=== PATIENT | female | born 1950 | race Caucasian/White ===

== ENCOUNTER 2018-03-06 08:49 | Outpatient (CLI) | payer MEDICARE ==
--- NOTE | 2018-03-06 11:54 | CT ---
CT ABDOMEN AND PELVIS WITH IV AND ORAL CONTRAST: Date: 03/06/18 HISTORY: Left lower quadrant pain. FINDINGS: Lung bases are clear. The liver, spleen, kidneys, adrenal glands, and pancreas have a normal CT appea jacob. Calcification within the arterial structures. Left inferior vena cava below the level of the r enal veins. Scattered diverticula of the sigmoid colon without adjacent inflammation. Urinary bladder is decompressed. IMPRESSION: 1. Mild diverticulosis. No evidence of diverticulitis. 2. Atherosclerosis. POS: MARIN
== END 2018-03-06 08:50 | disposition home or self-care (01) ==
LOC: NAV CT 08:49
PROVIDERS: ATTEND Family Medicine
DX: R19.04 Left lower quadrant abdominal swelling, mass and lump (principal); I70.0 Atherosclerosis of aorta; K57.30 Diverticulosis of large intestine without perforation or abscess without bleeding
CPT/HCPCS: 74177

== ENCOUNTER 2020-01-11 11:01 | Emergency (ER) | payer MEDICARE ==
[2020-01-11] MEDS ORDERED: Sodium Chloride 0.9% 1,000 ML ONE (11:31)
[2020-01-11 11:45] LABS: #Basophils 0.1 thou/uL (0.0-0.2); #Lymphocytes 1.6 thou/uL (1.20-3.40); #Monocytes 0.6 thou/uL (0.11-0.59); #Neutrophils 4.3 thou/uL (1.40-6.50); %Basophils 0.9 % (0.0-1.0); %Eosinophils 0.3 % (0.0-10.0); %Monocytes 8.5 % (0.0-10.0); %Neutrophils 66.3 % (42.0-75.0); Hemoglobin 13.6 g/dL (12.0-16.0); Mean Corpuscular Hemoglobin 32.4 pg (27.0-31.0); Mean Corpuscular Volume 95.4 fL (78.0-98.0); Mean Platelet Volume 7.4 fL (7.4-10.4); Platelet Count 152 thou/uL (130-400); RBC Distribution Width 11.4 % (11.5-14.5); White Blood Cell (WBC) Count 6.5 thou/uL (4.8-10.8)
--- NOTE | 2020-01-11 11:54 | RAD ---
XR Chest Pa Lat STANDARD HISTORY: Shortness of breath COMPARISON: 09/24/2018 FINDINGS: The heart size is normal. Old right rib fractures are again seen. The lungs are well expand ed without focal areas of consolidation, pneumothorax or pleural effusions. IMPRESSION: No radiographic evidence of acute cardiopulmonary process.
[2020-01-11 12:00] LABS: ALT (SGPT) Less than 6 U/L (8-55); AST (SGOT) 25 U/L (5-34); Albumin 3.9 g/dL (3.4-4.8); Alkaline Phosphatase 61 U/L (40-110); Anion Gap 13 mmol/L (10-20); BUN (Urea Nitrogen) 21 mg/dL (9.8-20.1); Bilirubin, Total 0.5 mg/dL (0.2-1.2); Calc. Creatinine Clearance 0 mL/min (70-130); Calcium 8.9 mg/dL (7.8-10.44); Carbon Dioxide 26 mmol/L (23-31); Estimated GFR-MDRD 82; Globulin 2.9 g/dL (2.4-3.5); Glucose 99 mg/dL (83-110); Lipase 39 U/L (8-78); Potassium 4.1 mmol/L (3.5-5.1); Protein, Total 6.8 g/dL (6.0-8.3); Sodium 142 mmol/L (136-145)
[2020-01-11 12:03] LABS: Chloride 107 mmol/L (98-107)
[2020-01-11] MEDS ORDERED: Lorazepam 0.5 MG TAB ONE (12:17)
[2020-01-11 12:26] LABS: Bilirubin Negative (Negative); Blood, Urine Negative (Negative); Clarity Clear (Clear); Glucose, Urine (Dipstick) Negative (Negative); Ketone, Urine Negative (Negative); Leukocyte Negative (Negative); Nitrite Negative (Negative); Protein, Urine (Dipstick) Negative (Neg-Trace); Specific Gravity, Urine 1.025 (1.005-1.030); Urobilinogen 0.2 mg/dL (Less than 2)
== END 2020-01-11 13:30 | disposition home or self-care (01) ==
LOC: NAV ERS 11:01
DX: F41.9 Anxiety disorder, unspecified (principal); F17.210 Nicotine dependence, cigarettes, uncomplicated; Z79.899 Other long term (current) drug therapy
CPT/HCPCS: 71046; 80053; 81003; 83605; 83690; 83880; 84484; 85025; 85379; 93005; J7050